=== PATIENT | female | born 1965 | race Caucasian/White ===

== ENCOUNTER 2020-03-24 18:49 | Emergency (ER) | payer BC, SELFPAY ==
[~2020-03-24] VITALS: Ht 172.7 cm; Wt 68.9 kg
[2020-03-24 19:36] VITALS: BP_SYST 123
--- NOTE | 2020-03-24 19:54 | NUR ---
Patient to ER bed H1 to gown for evaluation. Side rails up.
--- NOTE | 2020-03-24 20:25 | NUR ---
Dr. Moore bedside for pt eval
--- NOTE | 2020-03-24 20:30 | NUR ---
Pt BIB family to ED C/O, for the last few days, hx of sore throat, chills, and body aches. She reports exposure to coworker with COVID 1 week ago. No fever, cough, shortness of breath, chest pain, abdominal pain, nausea, vomiting, diarrhea, loss of taste or smell, or other medical complaints at this time. No alleviating or exacerbating factors. VSS no s/s of acute distress Resting on gurney rails up
[2020-03-24 20:51] VITALS: BP_SYST 124
--- NOTE | 2020-03-24 20:51 | NUR ---
Patient given written and verbal discharge instructions and verbalizes understanding. ER MD discussed with patient the results and treatment provided. Patient in stable condition. ID arm band removed. Patient educated on pain management and to follow up with PMD. Pain Scale 0/10 Opportunity for questions provided and answered.
== END 2020-03-24 20:51 | disposition home or self-care (01) ==
LOC: SED 18:49
DX: B34.9 Viral infection, unspecified (principal); Z20.828 Contact with and (suspected) exposure to other viral communicable diseases
CPT/HCPCS: 99283; U0003; C9803-CS